=== PATIENT | female | born 1930 | race Caucasian/White ===

== ENCOUNTER 2017-10-12 11:14 | Emergency (ER) | payer MEDICARE ==
[2017-10-12] MEDS ORDERED: CEFAZOLIN 2 Gram 2 GM/50 ML BAG IVPB ONE (11:22)
--- NOTE | 2017-10-12 11:26 | Emergency Department Record ---
History of Present Illness - General Stated Complaint: FELL INJURED ARMS Time Seen by Provider: 10/12/17 11:20 Source: Patient, Family Mode of Arrival: Ambulatory Limitations: No limitations - History of Present Illness Initial Comments: 87 yo female presents with a laceration to the right forearm. She fell with a glass that broke and lacerated her right forearm. She has a visible forearm tendon laceration. No weakness, numbness or tingling. She is not on blood thinners. No head, neck, chest, abdominal injury. No other pain or injuries. She has chronic dizziness with frequent falls. No syncope. She [place] [facility] 1[place]2 [place] ago for 3 days of tests for her dizziness. MD Complaint: Fall -: Minutes(s) Fall From: Standing When Fall Occurred: Just prior to arrival Fall Witnessed: Yes, by family Place Fall Occurred: Home Loss of Consciousness: None Prolonged Down Time?: No Symptoms Prior to Fall: None Location - Extremities: Right: Forearm Quality: Aching Associated Symptoms: Denies - Edu Coma Scale Eye Response: (4) Open spontaneously Motor Response: (6) Obeys commands Verbal Response: (5) Oriented Edu Total: 15 - Related Data Home Medications Medication Instructions Recorded Confirmed Last Taken Amlodipine Besylate/Benazepril 1 each PO DAILY 10/12/17 10/12/17 10/12/17 08:00 [Amlodipine-Benazepril 5-10 mg] Budesonide 3 ml INH BID 10/12/17 10/12/17 10/12/17 08:00 Naproxen [Naprosyn] 500 mg PO BID 10/12/17 10/12/17 10/12/17 08:00 Rosuvastatin Calcium [Crestor] 5 mg PO DAILY 10/12/17 10/12/17 10/11/17 21:00 Previous Rx's Medication Instructions Recorded Cephalexin [Keflex] 500 mg PO QID #28 cap 10/12/17 Meclizine HCl [Antivert] 25 mg PO Q8H #20 tablet 10/12/17 Allergies Allergy/AdvReac Type Severity Reaction Status Date / Time No Known Drug Allergies Allergy Verified 10/12/17 11:31 Review of Systems Constitutional: Denies: Chills, Fever, Malaise, Weakness Eyes: Denies: Eye discharge ENT: Denies: Congestion, Throat pain Respiratory: Denies: Cough Cardiovascular: Denies: Chest pain, Syncope Endocrine: Denies: Fatigue Gastrointestinal: Denies: Abdominal pain, Diarrhea, Nausea, Vomiting Genitourinary: Denies: Dysuria Musculoskeletal: Reports: Myalgia. Denies: Arthralgia, Back pain, Joint swelling Skin: Denies: Bruising, Rash Neurological: Denies: Numbness, Tingling, Weakness Psychiatric: Denies: Anxiety Hematological/Lymphatic: Denies: Easy bleeding, Easy bruising Past Medical History - SOCIAL HISTORY Smoking Status: Never smoker - RESPIRATORY Hx Respiratory Disorders: Yes Hx Asthma: Yes - CARDIOVASCULAR Hx Cardio Disorders: Yes Hx Hypertension: Yes - NEURO Hx Neuro Disorders: No - GI Hx GI Disorders: Yes Hx Hiatal Hernia: Yes - Hx Genitourinary Disorders: Yes Hx Kidney Stones: Yes - ENDOCRINE Hx Endocrine Disorders: No - MUSCULOSKELETAL Hx Musculoskeletal Disorders: Yes Hx Arthritis: Yes - PSYCH Hx Psych Problems: No - HEMATOLOGY/ONCOLOGY Hx Hematology/Oncology Disorders: Yes Hx Cancer: Yes (skin-head) Hx Chemotherapy: No Hx Radiation Therapy: No Family Medical History Family Hx Comment (NOT TO BE USED IN PLACE OF ITEMS BELOW): Mom w/Polio Hx Heart Disease: Father Physical Exam - General General Appearance: Alert, Oriented x3, Cooperative, No acute distress Limitations: No limitations - Head Head exam: Atraumatic, Normal inspection Head exam detail: negative: Abrasion, Contusion, Hematoma, Laceration - Eye Eye exam: Normal appearance, PERRL. negative: Conjunctival injection, Scleral icterus - ENT ENT exam: Normal exam, Mucous membranes moist Ear exam: Normal external inspection Nasal Exam: Normal inspection Mouth exam: Normal external inspection - Neck Neck exam: Normal inspection - Respiratory Respiratory exam: Normal lung sounds bilaterally. negative: Respiratory distress - Cardiovascular Cardiovascular Exam: Regular rate, Normal rhythm, Normal heart sounds - GI/Abdominal GI/Abdominal exam: Soft - Rectal Rectal exam: Deferred - exam: Deferred - Extremities Extremities exam: Full ROM, Normal capillary refill, Tenderness. negative: Normal inspection Image of Full Body: 1 - 4cm x 6cm v shaped laceration, visible forearm tendon laceration, no FB, full ice cream van vendor, full finger flexion. - Back Back exam: Reports: Normal inspection, Full ROM. Denies: CVA tenderness (R), CVA tenderness (L) - Neurological Neurological exam: Alert, Oriented X3 - Psychiatric Psychiatric exam: negative: Agitated, Anxious - Skin Type of lesion: Laceration Course - Reevaluation(s) Reevaluation #1: On arrival the wound was cleaned in sterile fashion with skin prep with copious NS irrigation XR ordered for FX or FB 10/12/17 11:42 The CBC was reviewed No acute changes 10/12/17 12:17 The BMP was normal The XR was reviewed No acute fracture or FB. 10/12/17 I Called [facility] for telephone operator hand surgery I MACK Gonzalez of [facility] We discussed the injury with the tendon complete laceration and examination with full function and sensation at this time The patient will have tetanus updated, Keflex for home (Kefzol already given), close wound for hemostasis, splint with a dorsal block splint The patient is to call [phone] at 8:30am Saturday morning to be seen 10/12/17 13:27 PROCEDURE: 10 cm laceration of the right forearm (V shaped laceration 4cm x 6cm) Wound was cleaned and prepped in sterile fashion, no residual FB identified on examination. An obvious tendon laceration that was complete was noted on the ulnar side with the distal segment visible and proximal not visible The wound was copiously irrigated with NS again Wound was anesthetized with 5 mL of 1% Lidocaine with epinephrine) The laceration was repaired with 4-0 Ethilon sutures in interrupted fashion. 19 sutures placed Patient tolerated the procedure well without complications. A non stick dressing was placed She was placed in a dorsal block splint 10/12/17 14:35 HCT was reviewed. No acute process. Prominent CSF spaces may represent hygromas or chronic old subdurals. The findings are not acute in nature. These findings were present on a Aug 14 2017 HCT [place] [facility]. Stable and unchanged. 10/12/17 15:19 Medical Decision Making - Lab Data Result diagrams: 10/12/17 11:25 10/12/17 11:25 Disposition Disposition: Discharge Clinical Impression: Forearm laceration involving tendon Disposition: Home, Self-Care Condition: (1) Good Instructions: Fall Prevention for Older Adults (ED) Additional Instructions: Go to the [facility] or return if you have any concerns with your splint this Call Dr Gonzalez at [phone] at 8:30am on Saturday to be seen on Saturday. Tell them you were in the ER and were directed to be seen Saturday Take the Keflex 4 times daily Keep the splint on until seen in the office You will need extra help to prevent falls for your long standing dizziness Prescriptions: Cephalexin [Keflex] 500 mg PO QID #28 cap Meclizine HCl [Antivert] 25 mg PO Q8H #20 tablet Referrals: GERA GONZALEZ D.O. [DOCTOR OF OSTEOPATH] - Forms: Patient Portal Access Time of Disposition: 13:31 Quality - Quality Measures Quality Measures: N/A - Blood Pressure Screening Does Patient Have Any of the Following: No Blood Pressure Classification: Pre-Hypertensive BP Reading Systolic Measurement: 113 Diastolic Measurement: 80 Screening for High Blood Pressure: < Pre-Hypertensive BP, F/U Documented > [ [id number]] Pre-Hypertensive Follow-up Interventions: Referral to alternative/primary care provider.
[2017-10-12 11:30] LABS: BASO % 0.7 % (0-6); EOS % 8.7 % (0-6); GRAN % 37.2 % (47-80); HEMATOCRIT 39.6 % (35.0-47.0); HEMOGLOBIN 12.4 gm/dl (11.6-16.0); LYMPH % 45.8 % (16-45); MEAN CELL VOLUME 97.3 fl (81-97); MEAN CORPUSCULAR HEMOGLOBIN 30.5 pg (27-33); MEAN CORPUSCULAR HGB CONC 31.3 g/dl (32-36); MEAN PLATELET VOLUME 9.2 fl (7.4-10.4); MONO % 7.6 % (0-9); PLATELET COUNT 252 K/uL (130-400); RED BLOOD COUNT 4.07 M/uL (3.80-5.40); RED CELL DISTRIBUTION WIDTH 13.4 % (11.5-14.5); WHITE BLOOD COUNT W/O DIFF 8.2 K/uL (4.2-12.2)
[2017-10-12] MEDS ORDERED: ONDANSETRON HCL IV 4 MG/2 ML VIAL IVP ONE (11:42)
[2017-10-12 11:43] LABS: BLOOD UREA NITROGEN 29 mg/dL (8-23); CREATININE 0.8 mg/dL (0.5-0.9); EST GLOMERULAR FILTRATION RATE > 60 mL/min; PARTIAL THROMBOPLASTIN TIME 25.2 SECONDS (24.5-39.1); PROTHROMBIN TIME (PATIENT) 10.5 SECONDS (9.5-12.1)
[2017-10-12 11:46] LABS: GLUCOSE,RANDOM 96 mg/dL (74-109)
[2017-10-12] MEDS ORDERED: Diph,Pert(Acell),Tet Vac 0.5 ML SYR IM ONE (13:27)
[2017-10-12] MEDS ORDERED: MECLIZINE 25 MG TABLET PO ONE (13:40)
--- NOTE | 2017-10-14 08:33 | RADIOLOGY REPORT ---
EXAM: RIGHT FOREARM, TWO VIEWS HISTORY: FALL, LACERATION. TECHNIQUE: Two views of the right forearm were obtained. FINDINGS: The bones are osteopenic. No fracture or dislocation is identified. Degenerative changes at the base of the thumb. Laceration is noted medial to the distal ulna. IMPRESSION: NO EVIDENCE FOR FRACTURE OR DISLOCATION. JOB NUMBER: [id number] MTDD
--- NOTE | 2017-10-14 09:47 | CT SCAN REPORT ---
EXAM: CT OF THE HEAD WITHOUT CONTRAST HISTORY: DIZZINESS, FALLS. TECHNIQUE: Routine CT imaging of the head without intravenous contrast was obtained. Coronal and sagittal reformations are provided. Comparison: None. Hand dominance: Right. FINDINGS: Marked generalized cerebral atrophy. There are CSF fluid density extradural collections over the anterior cerebral convexities bilaterally which may just represent prominence of the CSF spaces from the atrophy though chronic subdural hematomas or hygromas are also possible. No evidence for acute intracranial hemorrhage. Patchy hypodensity throughout the supratentorial white matter is nonspecific, but likely chronic small vessel ischemic changes. There is a small area of focal encephalomalacia on the left parietal lobe likely from remote infarct. No significant mass effect or midline shift. Mild mucosal thickening throughout the paranasal sinuses. IMPRESSION: 1. MARKED GENERALIZED VOLUME LOSS WITH PROMINENT CSF SPACES OVER THE ANTERIOR CEREBRAL HEMISPHERES BILATERALLY WHICH MAY REPRESENT ENLARGEMENT OF THE CSF SPACES OR POSSIBLY CHRONIC SUBDURAL HYGROMAS OR HEMATOMAS. NO EVIDENCE FOR ACUTE INTRACRANIAL HEMORRHAGE. 2. 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 ADDENDUM: Marked generalized cerebral atrophy with prominent CSF spaces over both anterior frontal lobes which is more prominent though similar in appearance to a prior brain MRI from 10/24/08. No evidence for acute intracranial hemorrhage. JOB NUMBER: [id number] [facility]
== END 2017-10-12 15:13 | disposition home or self-care (01) ==
LOC: ER 11:14
DX: S51.811A Laceration without foreign body of right forearm, initial encounter (principal); S56.921A Laceration of unspecified muscles, fascia and tendons at forearm level, right arm, initial encounter; R42 Dizziness and giddiness; I10 Essential (primary) hypertension; Z91.81 History of falling; W01.110A Fall on same level from slipping, tripping and stumbling with subsequent striking against sharp glass, initial encounter; Y92.009 Unspecified place in unspecified non-institutional (private) residence as the place of occurrence of the external cause
CPT/HCPCS: 12034 ×2; 99284 ×2; 96372; 96365; 96375; 85025; 85730; 85610; 80048; 73090; 70450; J2405; J0690; 90715